=== PATIENT | female | born 1985 | race Caucasian/White ===

== ENCOUNTER 2018-09-24 17:43 | Observation (INO) | payer BC ==
--- NOTE | 2018-09-24 19:45 | US ---
INDICATION: Decreased movement TECHNIQUE: Ultrasound OB pelvis transabdominal. Real-time krishna-scale imaging of the fetus was performed with color Doppler and spectral Doppler analysis of the umbilical artery without stress testing. COMPARISON: None. FINDINGS: Sonographic imaging demonstrates a single living intrauterine gestation. Fetus demonstrates a regular cardiac rate of 156 beats per minute. Fetus has a cephalic orientation. The placenta lies posterior. Amniotic fluid volume appears normal with an MARIBEL of 12.77 cm. breathing movements, motion, and tone were all observed. IMPRESSION: Single viable intrauterine with a biophysical profile 01/21. Dictated by Gage To MD @ Sep 24 2018 7:40PM Signed by Dr. Gage To @ Sep 24 2018 7:43PM
[2018-09-24] MEDS ORDERED: Betamethasone Acetate/Betamethasone Sod Phosphate 30 MG/5 ML MDV IM ONE (20:01)
[2018-09-24] MEDS ORDERED: Sodium Chloride 0.9% 10 ML SDV FLUSH PRN (20:57)
[2018-09-24] MEDS ORDERED: Calcium Gluconate 10% 1 GM/10 ML SDV IVPUSH PRN (20:57)
[2018-09-24] MEDS ORDERED: Sodium Chloride 0.9% 10 ML Syringe FLUSH PRN (20:57)
[2018-09-24] MEDS ORDERED: Magnesium Sulfate/Water 4 GM in Premix Bag 1 BAG IV ONE (20:57)
[2018-09-24] MEDS ORDERED: Magnesium Sulfate/Water 20 GM/500 ML BAG IV SCH (21:00)
[2018-09-24] MEDS ORDERED: Lactated Ringers 1,000 ML IV SCH (21:15)
== END 2018-09-24 22:00 ==
LOC: MW.OBCHECK 17:43 → MW.OB 17:48 → MW.OBCHECK 20:57
PROVIDERS: ADMIT Obstetrics & Gynecology; ATTEND Obstetrics & Gynecology
DX: O14.13 Severe pre-eclampsia, third trimester (principal); O36.8130 Decreased fetal movements, third trimester, not applicable or unspecified; O32.1XX0 Maternal care for breech presentation, not applicable or unspecified; O99.013 Anemia complicating pregnancy, third trimester; Z3A.35 35 weeks gestation of pregnancy; Z88.0 Allergy status to penicillin; Z91.018 Allergy to other foods; Z90.721 Acquired absence of ovaries, unilateral; Z79.899 Other long term (current) drug therapy
CPT/HCPCS: 36415; 51702; 59025; 76819; 80053; 84550; 85025; J0702; J3475; J7120; 96372; 96374; G0378

== ENCOUNTER 2020-08-22 09:56 | Day surgery (SDC) | payer BC, OTHER ==
[~2020-08-22 09:56] MED LIST: Dexamethasone 4 MG/ML 5 ML MDV ONE; Lactated Ringers 1,000 ML IV SCH; Midazolam 1 MG/ML 2 ML SDV ONE; Ondansetron 4 MG/2 ML SDV ONE; Propofol 200 MG/20 ML SDV ONE; Sodium Chloride 0.9% 10 ML SDV IV PRN; Sodium Chloride 0.9% 10 ML Syringe FLUSH PRN; Sodium Chloride 0.9% 2.5 ML Syringe FLUSH PRN; cefOXitin 2 GM in Premix Bag 1 BAG IV ONE; fentaNYL 250 MCG/5 ML SDV ONE
[2020-08-22] MEDS ORDERED: Sodium Chloride 0.9% 20 ML ONE (10:16)
[2020-08-22] MEDS ORDERED: cefOXitin 1 GM Vial ONE (10:16)
--- NOTE | 2020-08-22 10:24 | PCM.PREANE ---
Preanesthetic Assessment - Anesthesia/Transfusion/Family Hx Anesthesia History: Prior Anesthesia Without Reaction Transfusion History: No Prior Transfusion(s) - Review of Systems General: No Symptoms Pulmonary: No Symptoms Cardiovascular: No Symptoms Gastrointestinal: No Symptoms Neurological: No Symptoms Other: Reports: None - Physical Assessment NPO Status Date: 08/22/20 NPO Status Time: 09:00 (sip of water) Vital Signs: Last Vital Signs Temp Pulse 88 08/22/20 10:14 Resp 16 08/22/20 10:14 BP 132/79 08/22/20 10:14 Pulse Ox 98 08/22/20 10:14 Height: 1.73 m Weight: 71.214 kg ASA Class: 2 Mental Status: Alert & Oriented x3 Airway Class: Mallampati = 2 Dentition: Reports: Normal Dentition Thyro-Mental Finger Breadths: 3 Mouth Opening Finger Breadths: 3 ROM/Head Extension: Full Lungs: Clear to Auscultation, Normal Respiratory Effort Cardiovascular: Regular Rate, Regular Rhythm - Allergies Allergies/Adverse Reactions: Allergies Allergy/AdvReac Type Severity Reaction Status Date / Time lactose Allergy Diarrhea Verified 08/16/20 07:54 mushroom Allergy Diarrhea Verified 08/16/20 07:54 Penicillins Allergy Rash Verified 08/16/20 07:54 soy Allergy Diarrhea Verified 08/16/20 07:54 - Blood Blood Available: No - Acknowledgements Anesthesia Type Planned: General Anesthesia Pt an Appropriate Candidate for the Planned Anesthesia: Yes Alternatives and Risks of Anesthesia Discussed w Pt/Guardian: Yes Pt/Guardian Understands and Agrees with Anesthesia Plan: Yes PreAnesthesia Questionnaire HEENT History: Reports: Allergic Rhinitis (dry throat) Cardiovascular History: Reports: None Respiratory History: Reports: Asthma (has not taken inhalers for 5 years.) Other Respiratory History: exercise induced asthma Gastrointestinal History: Reports: GERD (controlled by diet) Genitourinary History: Reports: None [employer]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, Musculoskeletal History: Reports: Fracture Other Musculoskeletal History: hx fx elbow and fx big toe Neurological History: Reports: Migraines Psychiatric History: Reports: Anxiety Endocrine/Metabolic History: Reports: None Hematologic History: Reports: None Immunologic History: Reports: None Oncologic (Cancer) History: Reports: None Dermatologic History: Reports: None - Past Surgical History Head Surgeries/Procedures: Reports: None HEENT Surgical History: Reports: Naso-Sinus Surgery Cardiovascular Surgical History: Reports: None Respiratory Surgical History: Reports: None GI Surgical History: Reports: None Female Surgical History: Reports: Section, Other (See Below) Other Female Surgeries/Procedures: laparoscopy for endometriosis, laparoscopy with right S&O Endocrine Surgical History: Reports: None Neurological Surgical History: Reports: None Musculoskeletal Surgical History: Reports: None Oncologic Surgical History: Reports: None Dermatological Surgical History: Reports: None - History Comment History Comment: etoh "1 every 2 months" - SUBSTANCE USE Tobacco Use Status *Q: Never Tobacco User Second Hand Smoke Exposure: No Recreational Drug Use History: No - HOME MEDS Home Medications: Home Meds Biotin 1 tab PO DAILY 08/16/20 [History] Elderberry Fruit and Flower [Black Elderberry 575 mg Cap] 1 tab PO DAILY 08/16/20 [History] Fish Oil/[place]-3 Fatty Acids [Fish Oil 1,000 MG] 1 tab PO DAILY 08/16/20 [History] Pnv No.95/Ferrous Fum/Folic AC [ Vitamin Tablet] 1 tab PO DAILY 08/16/20 [History] Lidocaine 5% 35.44 gm PERCUT Q2H PRN #1 tube 08/22/20 [Rx] polyethylene glycoL 3350 [MiraLAX] 17 gm PO DAILY #1 cont 08/22/20 [Rx] - CURRENT (IN HOUSE) MEDS Current Meds: Current Medications Lactated Ringer's (Ringers, Lactated) 1,000 mls @ 125 mls/hr IV ASDIRECTED JOLYNN Sodium Chloride (Saline Flush) 2.5 ml FLUSH ASDIRECTED PRN PRN Reason: Keep Vein Open Sodium Chloride (Normal Saline) 10 ml IV ASDIRECTED PRN PRN Reason: IV Use Sodium Chloride (Saline Flush) 10 ml FLUSH ASDIRECTED PRN PRN Reason: Keep Vein Open Discontinued Medications Cefoxitin Sodium 2 gm/ Premix 50 mls @ 100 mls/hr IV ONETIME ONE Stop: 08/21/20 11:17
[2020-08-22] MEDS ORDERED: Bupivacaine 0.5% 30 ML SDV ONE (10:31)
[2020-08-22] MEDS ORDERED: Scopolamine 1.5 MG Transdermal Patch ONE (10:37)
--- NOTE | 2020-08-22 12:32 | PCM.POSTAN ---
POST ANESTHESIA ASSESSMENT - MENTAL STATUS Mental Status: Alert, Oriented - VITAL SIGNS Vital Signs: Last Vital Signs Temp 36.5 C 08/22/20 12:17 Pulse 103 H 08/22/20 12:17 Resp 15 08/22/20 12:17 BP 115/56 L 08/22/20 12:17 Pulse Ox 98 08/22/20 12:17 - RESPIRATORY Respiratory Status: Respiratory Rate WNL, Airway Patent, O2 Saturation Stable - CARDIOVASCULAR CV Status: Pulse Rate WNL, Blood Pressure Stable - GASTROINTESTINAL GI Status: No Symptoms - PAIN Pain Score: 0 - POST OP HYDRATION Hydration Status: Adequate & Stable - OBSERVATIONS Free Text/Narrative:: The case was cancelled after induction of anesthesia please see Dr. Pruett's notes for details. The patient has no complaints at this time. There were no apparent anesthetic complications at this time. Discharge to phase 2 criteria.
--- NOTE | 2020-08-22 12:44 | PCM.OPNOTE ---
- General Post-Op/Procedure Note Date of Surgery/Procedure: 08/22/20 Operative Procedure(s): Exam under anestheisa, Findings: Grade IV left posterior hemorrhoidal column, opening that appeared to be a fistula at the base of the hemorrhoid at the transition point of the anoderm. This tracked under the mucosa along the posterior midline sphincter no secondary opening found Pre Op Diagnosis: Grade IV hemorrhoid Post-Op Diagnosis: Grade IV hemorrhoid, possible fistula Anesthesia Technique: General LMA Primary Surgeon: Erika Pruett Fluid Replacement, Intraop: 500 Condition: Good Free Text/Narrative:: Intake & Output 08/21/20 08/22/20 08/22/20 22:59 06:59 14:59 Intake Total 700 Balance 700
--- NOTE | 2020-08-22 12:52 | PCM48HPAN ---
Post Anesthesia Note - EVALUATION WITHIN 48HRS OF ANESTHETIC Vital Signs in Normal Range: Yes Patient Participated in Evaluation: Yes Respiratory Function Stable: Yes Airway Patent: Yes Cardiovascular Function Stable: Yes Hydration Status Stable: Yes Pain Control Satisfactory: Yes Nausea and Vomiting Control Satisfactory: Yes Mental Status Recovered: Yes Vital Signs: Last Vital Signs Temp 36.5 C 08/22/20 12:17 Pulse 88 08/22/20 12:38 Resp 15 08/22/20 12:38 BP 121/60 08/22/20 12:38 Pulse Ox 99 08/22/20 12:38 - COMMENTS/OBSERVATIONS Free Text/Narrative:: The patient has no complaints at this time. Discharge per criteria.
--- NOTE | 2020-08-22 15:44 | OR ---
SURGEON: ERIKA PRUETT MD DATE OF PROCEDURE: 08/22/2020 PREOPERATIVE DIAGNOSIS: Grade 4 hemorrhoid. POSTOPERATIVE DIAGNOSIS: Grade 4 hemorrhoid, possible posterior midline fistula. PROCEDURE PERFORMED: Exam under anesthesia. PRIMARY SURGEON: Erika Pruett MD ANESTHESIA: General LMA. FLUIDS: 500 mL crystalloid. ESTIMATED BLOOD LOSS: 1 mL. FINDINGS: Grade 4 left posterior hemorrhoidal column, possible posterior midline fistula. COMPLICATIONS: None. INDICATIONS: The patient is a 34-year-old female who presented to clinic with an enlarged hemorrhoid non-amenable to conservative management. A digital rectal exam in the clinic revealed enlarged left posterior hemorrhoidal column. I consented the patient for hemorrhoidectomy. I explained the procedure, expected perioperative course, and the risks. She verbalized understanding and wished to proceed. PROCEDURE IN DETAIL: The patient was brought into the OR on the OR cart and placed in the left lateral decubitus position. A time-out was completed verifying the patient's name, age, date of , allergies, and procedure to be performed. Prior to positioning the patient, general LMA anesthesia was induced. Once in the left lateral decubitus position, all bony prominences were appropriately padded and the patient was secured to the bed. The anoderm and buttocks were prepped and draped in usual standard fashion. A digital rectal exam was performed. This exam again revealed a single enlarged hemorrhoidal column along the left posterior anus. I anesthetized the anoderm circumferentially with half percent Marcaine plain. A bivalve proctoscope was inserted into the anal canal. The remainder of the tissue appeared normal. Using a forceps, I elevated the hemorrhoidal column. At the transition zone of the anoderm and anal canal, the patient was noted to have an opening. This looked like a fistulous tract. A fistula probe was brought into the field. It easily passed through the opening underneath the mucosa and toward the posterior midline. It tracked along the sphincter muscles and up above them. I could not find an opening into the anal canal. I palpated along the posterior midline, but did not feel a thickened fistulous tract. Using a syringe and Angiocath, 0.5 mL of hydrogen peroxide were injected through this opening. The mucosa along the posterior midline elevated, but I saw no evidence of leakage of hydrogen peroxide into the anal canal or from the rectum to suggest an opening. I gently massaged the hydrogen peroxide out. Given the possibility of an anal fistula in the area of the enlarged hemorrhoid, the decision was made to abort the procedure to avoid opening a fistula if that is what this opening is. The bivalve proctoscope was removed. A small amount of 2% lidocaine jelly was placed on the anoderm. The patient tolerated the procedure well with no acute complications. All counts were complete and correct at the end of the case. She was taken to PACU in stable condition. SKINNY CHILDRESS /[id number] MTDD
== END 2020-08-22 12:52 | disposition home or self-care (01) ==
LOC: MW.SDS 09:56
PROVIDERS: ATTEND Surgery
DX: K64.3 Fourth degree hemorrhoids (principal); Z88.0 Allergy status to penicillin; Z88.8 Allergy status to other drugs, medicaments and biological substances; Z91.018 Allergy to other foods; Z79.899 Other long term (current) drug therapy
CPT/HCPCS: 00902; 81025; A9270-GY; J0694; J1100; J2250; J2405; J2704; J3010; J3490; J7120

== ENCOUNTER 2021-10-14 10:23 | Emergency (ER) | payer BC, OTHER ==
[2021-10-14 11:43] LABS: BLOOD UREA NITROGEN,BUN 9 mg/dL (7.0-18.0); CARBON DIOXIDE,CO2 27.9 mmol/L (21.0-32.0); CHLORIDE,CL 103 mmol/L (98-107); GLUCOSE RANDOM 101 mg/dL (74-106); POTASSIUM,K 4.2 mmol/L (3.5-5.1); SODIUM,NA 141 mmol/L (136-145)
[2021-10-14] MEDS ORDERED: Ondansetron 4 MG/2 ML SDV IVPUSH ONE (11:54)
[2021-10-14] MEDS: Morphine 4 MG/ML VIAL IVPUSH ONE ×2 (12:03→12:06)
[2021-10-14] MEDS ORDERED: Morphine 2 MG/ML SYRINGE IVPUSH ONE (12:05)
[2021-10-14] MEDS ORDERED: Morphine 4 MG/ML VIAL IVPUSH ONE (12:10)
[2021-10-14] MEDS ORDERED: Iopamidol 755 MG/ML 500 ML Multipack Bottle IVPUSH ONE (16:21)
== END 2021-10-14 14:10 | disposition home or self-care (01) ==
LOC: MW.ED 10:23
DX: R06.02 Shortness of breath (principal); M25.511 Pain in right shoulder; Z88.0 Allergy status to penicillin; Z91.011 Allergy to milk products; Z91.018 Allergy to other foods
CPT/HCPCS: 36415; 71275; 73030; 80053; 84484; 84703; 85025; 85379; 93005; 96374; 96375; 99284; J2270; J2405; Q9967

== ENCOUNTER 2022-11-16 17:25 | Emergency (ER) | payer BC ==
[2022-11-16 17:52] LABS: APPEARANCE,URINE CLEAR; BILIRUBIN,URINE NEGATIVE (NEGATIVE); COLOR,URINE YELLOW; GLUCOSE,URINE NEGATIVE (NEGATIVE); KETONES,URINE NEGATIVE (NEGATIVE); LEUKOCYTE ESTERASE,URINE LARGE (NEGATIVE); NITRITE,URINE NEGATIVE (NEGATIVE); OCCULT BLOOD,URINE SMALL (NEGATIVE); PROTEIN,URINE NEGATIVE (NEGATIVE); UROBILINOGEN,URINE 0.2 EU/dL (<2.0)
[2022-11-16 18:22] LABS: BACTERIA,URINE FEW (NEGATIVE); EPITHELIAL CELLS,URINE FEW (NONE-FEW); MUCUS,URINE FEW (NONE-MOD); SQUAMOUS EPITHELIAL CELLS,UR FEW; WBC,URINE 20-30 (0-5/HPF)
[2022-11-16 18:23] LABS: YEAST,URINE FEW
[2022-11-16 18:43] LABS: BASOPHILS PERCENT AUTO 0.2 % (0.0-1.5); EOSINOPHILS ABSOLUTE AUTO 0.1 K/uL (0.0-0.7); EOSINOPHILS PERCENT AUTO 0.7 % (0.0-7.0); HEMATOCRIT 39.2 % (36.0-46.0); HEMOGLOBIN 12.8 g/dL (12.0-16.0); LYMPHOCYTES ABSOLUTE AUTO 2.4 K/uL (0.6-2.4); LYMPHOCYTES PERCENT AUTO 28.5 % (16.0-40.0); MEAN CORPUSCULAR HEMOGLOBIN 28.6 pg (27.0-32.0); MEAN CORPUSCULAR HGB CONC 32.7 g/dL (31.0-37.0); MEAN CORPUSCULAR VOLUME 87.5 fL (80.0-98.0); MONOCYTES ABSOLUTE AUTO 0.8 K/uL (0.0-0.8); MONOCYTES PERCENT AUTO 9.3 % (0.0-15.0); NEUTROPHILS ABSOLUTE AUTO 5.1 K/uL (1.4-5.7); NEUTROPHILS PERCENT AUTO 61.3 % (48.0-80.0); NRBC ABSOLUTE 0 K/uL; PLATELET COUNT,PLT 260 K/uL (150-400); RED BLOOD CELL COUNT 4.48 M/uL (4.30-5.90); WHITE BLOOD CELL COUNT,WBC 8.35 K/uL (4.0-11.0)
[2022-11-16 19:10] LABS: A/G RATIO 1.1 (0.9-1.6); ALBUMIN 3.9 g/dL (3.4-5.0); BILIRUBIN TOTAL 0.3 mg/dL (0.2-1.0); CALCIUM 8.9 mg/dL (8.5-10.1); CARBON DIOXIDE,CO2 26.7 mmol/L (21.0-32.0); CREATININE 0.8 mg/dL (0.6-1.0); EST CRCL DRUG DOSING (CG) 99.01 mL/min; PROTEIN TOTAL,TP 7.6 g/dL (6.4-8.2)
[2022-11-16] MEDS ORDERED: Cephalexin 500 MG Cap PO STA (19:30)
== END 2022-11-16 20:18 | disposition home or self-care (01) ==
LOC: MW.ED 17:25
DX: O26.851 Spotting complicating pregnancy, first trimester (principal); J45.909 Unspecified asthma, uncomplicated; Z91.011 Allergy to milk products; Z91.018 Allergy to other foods; Z88.0 Allergy status to penicillin; Z67.40 Type O blood, Rh positive; Z3A.09 9 weeks gestation of pregnancy
CPT/HCPCS: 36415; 76817; 80053; 81001; 84702; 85025; 86850; 86900; 86901; 87086; 99284; A9270; 99283

== ENCOUNTER 2023-12-02 14:21 | Emergency (ER) | payer BC ==
[2023-12-02 14:51] LABS: BASOPHILS ABSOLUTE AUTO 0.02 K/uL (0.00-0.20); BASOPHILS PERCENT AUTO 0.2 % (0.0-1.0); EOSINOPHILS ABSOLUTE AUTO 0.03 K/uL (0.00-0.45); EOSINOPHILS PERCENT AUTO 0.3 % (0.0-6.0); HEMATOCRIT 38.5 % (37.0-47.0); HEMOGLOBIN 13.1 g/dL (12.0-16.0); IMMATURE GRAN ABSOLUTE AUTO 0.02 K/uL (0.00-0.05); IMMATURE GRAN PERCENT AUTO 0.2 % (0.0-0.4); LYMPHOCYTES ABSOLUTE AUTO 3.24 K/uL (1.00-4.80); LYMPHOCYTES PERCENT AUTO 27.4 % (24.0-44.0); MEAN CORPUSCULAR HEMOGLOBIN 28.9 pg (28.0-32.0); MEAN PLATELET VOLUME 10.7 fL (9.4-12.3); MONOCYTES ABSOLUTE AUTO 0.96 K/uL (0.00-0.80); MONOCYTES PERCENT AUTO 8.1 % (0.0-8.0); NEUTROPHILS ABSOLUTE AUTO 7.57 K/uL (1.80-7.70); NEUTROPHILS PERCENT AUTO 63.8 % (41.0-71.0); PLATELET COUNT,PLT 251 K/uL (150-400); RED BLOOD CELL COUNT 4.53 M/uL (4.10-5.30); WHITE BLOOD CELL COUNT,WBC 11.84 K/uL (3.9-11.3)
[2023-12-02 15:40] LABS: A/G RATIO 0.8 (0.9-1.6); ALBUMIN 3.4 g/dL (3.4-5.0); BILIRUBIN TOTAL 0.3 mg/dL (0.2-1.0); CALCIUM 9.1 mg/dL (8.5-10.1); CARBON DIOXIDE,CO2 23.3 mmol/L (21.0-32.0); CREATININE 0.8 mg/dL (0.6-1.0); EST CRCL DRUG DOSING (CG) 98.07 mL/min; POTASSIUM,K 3.6 mmol/L (3.5-5.1); PROTEIN TOTAL,TP 7.5 g/dL (6.4-8.2)
[2023-12-02] MEDS: Sodium Chloride 0.9% 1,000 ML IV ONE (15:56)
== END 2023-12-02 16:59 | disposition home or self-care (01) ==
LOC: MW.ED 14:21
DX: O20.0 Threatened abortion (principal); Z79.899 Other long term (current) drug therapy; Z75.8 Other problems related to medical facilities and other health care; Z88.0 Allergy status to penicillin; Z91.018 Allergy to other foods; Z91.011 Allergy to milk products; Z3A.12 12 weeks gestation of pregnancy
CPT/HCPCS: 36415; 76817; 80053; 84702; 85025; 86900; 86901; 96360; 99284; J7030; 99283

== ENCOUNTER 2024-05-14 08:25 | Emergency (ER) | payer BC | END 2024-05-14 10:20 | disposition home or self-care (01) | LOC: MW.ED 08:25 | DX: O99.513 Diseases of the respiratory system complicating pregnancy, third trimester (principal); J32.9 Chronic sinusitis, unspecified; Z79.899 Other long term (current) drug therapy; Z91.011 Allergy to milk products; Z91.018 Allergy to other foods; Z88.0 Allergy status to penicillin; Z75.8 Other problems related to medical facilities and other health care; Z3A.36 36 weeks gestation of pregnancy | CPT/HCPCS: 87428-QW; 87651-QW; 99283 ==